=== PATIENT | female | born 1980 ===

== ENCOUNTER 2016-11-14 23:34 | Emergency (ER) | payer OTHER ==
--- NOTE | 2016-11-15 01:43 | ED CLINICAL REPORT ---
Clinical Report - Physicians/Mid Levels [facility]ly [facility] [address] [place] [place] [address] 11/14/2016 23:33 Patient: RODRIGO GRIFFITHS Time Seen: 23:59. Arrived- By private vehicle. Historian- patient. Note: . HISTORY OF PRESENT ILLNESS The patient has recovered. Chief Complaint: SINGLE SYNCOPAL EPISODE. This occurred today. It was gradual in onset and has been waxing/waning. Event was witnessed. The patient lost consciousness. The patient had preceding symptoms of light-headedness. No preceding symptoms of chest pain or abdominal pain. At time of event, she had just stood up. Had a single episode. The episode was brief and lasted seconds. Location of injuries- head and neck. Currently she feels normal. No weakness currently. No nausea currently. No headache currently. (had the flu one week ago. today pt became dizzy and fainted at work, hitting face on counter. She did not fall to the ground and did not strike her abdomen in any way). Similar symptoms previously: Recent medical care: The patient was seen recently in a clinic. REVIEW OF SYSTEMS Last normal menstrual period- with EDC: January 23, 2017. No headache, weakness, chest pain, palpitations or vomiting. No diarrhea, black stools, numbness, bloody stools or fever. No skin rash or enlarged lymph nodes. The patient has had dizziness. She has had a mild nonproductive cough. No blood tinged sputum or frankly bloody sputum. All systems otherwise negative, except as recorded above. PAST HISTORY ( OB: Dr Giarrd). No history of seizure, stroke or psychiatric problems. Has not had GI bleeding. No history of dysrhythmia. Surgeries: . Medications: Vitamins Oral. Allergies: No Known Drug Allergy. SOCIAL HISTORY Never smoker. No alcohol use or drug use. Is a local resident. ADDITIONAL NOTES The nursing notes have been reviewed. PHYSICAL EXAM Vital Signs: 11/14/2016 23:40 BP: 119/76. HR: 88. RR: 16. O2 saturation: 100%. Temp: 98.3 F. Pain level now: 0/10. Appearance: Alert. No acute distress. Head: Mild tenderness in the left frontal region. No ecchymosis or swelling. Eyes: Pupils equal, round and reactive to light. No nystagmus. Extraocular movements normal. ENT: Normal ENT inspection. TM's normal. Pharynx normal. No depression of the gag reflex. No trouble handling secretions, injury to the tongue or pharyngeal erythema. The mucous membranes are not dry. Neck: Normal inspection. Neck supple. Soft tissue tenderness. Vertebral tenderness. There is general posterior midline<lateral tenderness; no step off; no crepitance; no ecchymosis. CVS: Normal heart rate and rhythm. Heart sounds normal. Pulses normal. Respiratory: No respiratory distress. Breath sounds normal. No rales, wheezes or rhonchi. Abdomen: Soft and nontender. Gravid uterus. Size consistent with dates. Back: Normal inspection. No CVA tenderness. Skin: Skin warm and dry. Normal skin color. No rash. Normal skin turgor. Extremities: Extremities exhibit normal ROM. No lower extremity edema. Neuro: Alert. Oriented X 3. Mood/affect normal. Speech normal. Cranial nerves normal (as tested). No cerebellar findings. No motor deficit. No sensory deficit. Reflexes normal. Reflex exam: right patellar 2+, left patellar 2+, right Achilles 2+ and left Achilles 2+. LABS, X-RAYS, AND EKG EKG: EKG time: (00:23). Normal sinus rhythm. Rate: 80. Normal P waves. Normal JUAN. Normal QRS complex. Normal axis. Normal ST and T waves. The study has been interpreted contemporaneously by me. The EKG appears to be a good tracing. Rhythm Strip #1: Normal sinus rhythm. Regular rhythm. Narrow QRS complexes. No ectopy. Laboratory Tests: UA-Culture if indicated: (ABELARDO: 11/15/2016 00:23) ( MsgRcvd 11/15/2016 00:40) Final results Test Result Flag Units (Reference) URINE COLOR YELLOW URINE APPEARANCE CLEAR URINE GLUCOSE NEGATIVE (NEGATIVE) URINE BILIRUBIN NEGATIVE (NEGATIVE) URINE KETONE NEGATIVE (NEGATIVE) URINE SPECIFIC GRAVITY <= 1.005 L (1.010-1.030) URINE PH 6.0 (5.0-8.0) URINE PROTEIN NEGATIVE (NEGATIVE) URINE UROBILINOGEN 0.2 EU/dL (0.2-1.0) URINE NITRITE NEGATIVE (NEGATIVE) URINE BLOOD NEGATIVE (NEGATIVE) URINE LEUK ESTERASE POSITIVE (NEGATIVE) URINE RBC 0-1 rbc/hpf (0-1) URINE WBC 3-5 wbc/hpf (0-1) URINE EPITHELIAL CELLS 1-3 EPI/hpf (0-5) URINE BACTERIA FEW (1+) (NONE SEEN) 1+ (FEW) YEAST ALSO SEEN ON MICROSCOPIC EXAMINATION URINE COMMENT CULTURE INDICATED URINE CULTURES ARE SET-UP BASED ON THE FOLLOWING CRITERIA:POSITIVE NITRITEPOSITIVE LEUKOCYTE ESTERASEGREATER THAN 10 WHITE BLOOD CELLSMODERATE (2+) OR GREATER BACTERIA CBC w Diff: (ABELARDO: 11/15/2016 00:23) ( [facility] 11/15/2016 00:32) Final results Test Result Flag Units (Reference) WHITE BLOOD COUNT 15.4 H K/uL (4.5-11.5) RED BLOOD COUNT 4.24 M/uL (4.00-5.20) HEMOGLOBIN 11.8 L gm/dL (12.0-16.0) HEMATOCRIT 36.0 % (36.0-46.0) MEAN CELL VOLUME 85 fL (80-100) MEAN CORPUSCULAR HGB 28 pg (26-34) MEAN CORPUSCULAR HGB CONC 33 g/dL (31-37) RED CELL DISTRIBUTION WIDTH 14.0 % (11.6-14.8) PLATELET COUNT 264 K/uL (150-400) NEUTROPHIL % 83.2 H % (50-75) LYMPH % 11.1 L % (25-40) MONO % 4.5 % (3-14) EOSINOPHIL % 0.8 % (0-4) BASOPHIL % 0.4 % (0-2) BNP: (ABELARDO: 11/15/2016 00:23) ( MsgRcvd 11/15/2016 00:53) Final results Test Result Flag Units (Reference) B-TYPE NATRIURETIC PEPTIDE < 5.0 L pg/ml (5-100) Amylase: (ABELARDO: 11/15/2016 00:23) ( MsgRcvd 11/15/2016 00:58) Final results Test Result Flag Units (Reference) AMYLASE 91 U/L (25-115) THYROID STIMULATING HORMONE 2.991 uIU/mL (0.34-3.74) CHEM 13 PANEL: (ABELARDO: 11/15/2016 00:23) ( MsgRcvd 11/15/2016 00:51) Final results Test Result Flag Units (Reference) GLUCOSE 90 mg/dL (70-110) BUN 8 mg/dL (7-18) CREATININE 0.5 L mg/dL (0.6-1.3) Estimated GFR >60 mL/min Estimated GFR- >60 mL/min Note: Persistent reduction over 3 months in eGFR<60 mL/min/1.73 m2 defines CKD. Patients with eGFR values>=60 mL/min/1.73 m2 may also have CKD if evidence ofpersistent proteinuria. Additional information may be foundat www.kidney.org. SODIUM 136 mmol/L (136-145) POTASSIUM 3.5 mmol/L (3.5-5.1) CHLORIDE 102 mmol/L (98-107) CARBON DIOXIDE 27 mmol/L (21-32) CALCIUM 8.2 L mg/dL (8.5-10.1) TOTAL PROTEIN 7.1 g/dL (6.4-8.2) ALBUMIN 2.7 L g/dL (3.3-5.0) BILIRUBIN, TOTAL 0.2 mg/dL (0.0-1.0) ALKALINE PHOSPHATASE 107 U/L (46-116) AST (SGOT) 15 U/L (15-37) ALT (SGPT) 18 U/L (12-78) MAGNESIUM 1.9 mg/dL (1.8-2.4) CPK 49 U/L (24-260) TROPONIN I <0.05 L ng/mL (0.00-1.5) TROPONIN REFERENCE RANGE:<0.1 NEGATIVE0.1-1.5 INDETERMINANT>1.5 POSITIVE . Microbiology: Urine culture ordered. Pulse Oximetry: 11/14/2016 23:40 O2 saturation: 100%. (FIO2 - room air). Interpretation: normal. 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 Mild UTI. She reports not drinking much fluids. No sign of serious cardiopulmonary disease now. I have offered further observation and monitoring in house, but she declines this She also declined recommended x-rays - she is aware that I cannot rule out cervical spine injury without films and accepts this (small) risk. Patient/family counseled. Disposition: Discharged. Condition: stable and improved. CLINICAL IMPRESSION Common syncope .12 lead EKG performed. Third trimester . Ultrasound was not performed to determine location because the patient had a previously documented intrauterine . Moderate leukocytosis. No lymphocytosis. Acute urinary tract infection with cystitis. Acute cervical strain. Single contusion to the forehead.No hematoma or skin abrasion. INSTRUCTIONS Do not work for seven days. Drink plenty of fluids. Warnings: Further evaluation is necessary in order to recheck abnormal lab, obtain test results, conduct further tests and assess the possibility of serious illness. It is very important to follow up with a physician. GENERAL WARNINGS: Return or contact your physician immediately if your condition worsens or changes unexpectedly, if not improving as expected, or if other problems arise. Prescription Medications: Macrobid 100 mg: Take 1 capsule orally every 12 hours for 7 days. No refills. Substitution is permissible. Follow-up with: Kadeem Girard MD, Obstetrics/Gynecology, , [facility], [address] [place] [address], [facility] Follow up tomorrow. (Electronically signed by Oscar Nesbitt DO 11/15/2016 5:22)
--- NOTE | 2016-11-15 01:43 | ED NURSING NOTES ---
Clinical Report - Nurses Located Within [facility] [address] [place] [address] 11/14/2016 23:33 Patient: RODRIGO GRIFFITHS TRIAGE Triage time 23:40. Acuity: LEVEL 3. Chief Complaint: DIZZINESS and FAINTING. Alert. No acute distress. --23:48 Chandni Delacruz R.N. 23:40 11/14/16. BP: 119/76. HR: 88. RR: 16. O2 saturation: 100%. Temp: 98.3 F (oral). Pain level now: 0/10. --23:48 Chandni Delacruz R.N. Weight: 70.7 kg stated. Height/Length: 57 inches Per Patient. BMI: 33.8. --23:42 Chandni Delacruz R.N. Medications Vitamins Oral. --23:41 Chandni Delacruz R.N. Allergies No Known Drug Allergy. --23:41 Chandni Delacruz R.N. History Arrived by private vehicle. Historian: patient. Accompanied by family. Primary physician (Era). ( had the flu one week ago. today pt became dizzy and fainted at work, hitting face on counter.). This started today. Treatment RETORT ENGINEER: None. PAST MEDICAL HX: Immunizations: up-to-date. Currently : EDC: January 23, 2017. SOCIAL HX: Never smoker. No alcohol use or drug use. NUTRITIONAL RISK ASSESSMENT: The nutritional risk assessment revealed no deficiencies. FUNCTIONAL ASSESSMENT: Functional assessment: no impairments noted. --23:48 Chandni Delacruz R.N. PROBLEMS: no known problems. ADDITIONAL SURGERIES: . --23:41 Chandni Delacruz R.N. Interventions ID band on patient. To treatment room. --23:48 Chandni Delacruz R.N. PHYSICAL ASSESSMENT To room via wheelchair. Patient gowned. GENERAL / NEURO / PSYCH: Alert. Oriented X 4. Appears in no acute distress. RESPIRATORY: Respirations not labored. CVS: Capillary refill less than 2 seconds. SKIN: Skin is warm and dry. --23:48 Chandni Delacruz R.N. NURSING PROGRESS NOTES Head of bed elevated. Two patient identifiers checked. Call light placed in reach. Side rails up x 1. Bed placed in lowest position. Brakes of bed on. --23:48 Chandni Delacruz R.N. Patient ready for evaluation- chart flagged. --23:48 Chandni Delacruz R.N. ( FHT- 155). --23:53 Chandni Delacruz R.N. EKG time: (0023 AM). EKG was performed by a tech and shown to the ED physician. --00:24 Rajesh Justin <<STRICKEN ENTRY-- 00:11/15/2016 Site #1 started via IV antecubital space with an 20g angiocath, with aseptic technique and good blood return; one attempt. Blood drawn: rainbow set. Labeled in the presence of the patient and sent to the lab. --00:26 Chandni Delacruz R.N. --END STRIKE>> Correction. --00:27 Chandni Delacruz R.N. 00:11/15/2016 Started bag #1 1000 mL IV Fluids IV NS (Saline); at 1000 mL/hr via site #1 via IV pump. Allergies verified and confirmed 5 rights. IV patency established. IV site checked: no pain, redness, or swelling. IV flushed thoroughly pre- and post-medication administration. --00:27 Chandni Delacruz R.N. Patient ID band checked for patient name and birthdate: patient confirmed. Instructions provided to collect clean catch urine and patient verbalized understanding. Clean catch urine collected with return of yellow-colored clear urine; sample sent to lab. Specimen labeled in the presence of the patient. --00:27 Chandni Delacruz R.N. 00:11/15/2016 Site #1 started via IV in the right antecubital space with an 20g angiocath, with aseptic technique and good blood return; one attempt. Blood drawn: rainbow set. Labeled in the presence of the patient and sent to the lab. --00:27 Chandni Delacruz R.N. 23:50 late entry -. raised printer, pulse oximeter and NIBP monitor placed on patient; monitor alarms on. --00:28 Chandni Delacruz R.N. 01:06 11/15/2016 Nitrofurantoin PO Capsules 100 mg given. Allergies verified and confirmed 5 rights. --01:06 Chandni Delacruz R.N. 01:23 11/15/16. BP: 106/65. HR: 84. RR: 15. O2 saturation: 100% on room air. Pain level now: 0/10. --01:25 Chandni Delacruz R.N. DISPOSITION / DISCHARGE 01:44 11/15/16. BP: 103/67. HR: 68. RR: 15. O2 saturation: 100%. Temp: deferred. Pain level now: 0/10. --01:44 Chandni Delacruz R.N. 01:25 11/15/2016 IV Fluids IV NS Discontinued: bag #1 completed. Total amount infused: 1000 mL. IV patency established. IV site checked: no pain, redness, or swelling. IV flushed thoroughly. --01:45 Chandni Delacruz R.N. Condition at departure: improved and stable. No learning barriers present. Discharge instructions provided and reviewed with the patient. Reviewed medication(s) side effects, precautions, dosing and course information. Prescription(s) given to the patient. Patient verbalized understanding. Written instructions provided in Dutch. The patient was discharged home and accompanied by spouse and family. She left the Emergency Department ambulatory and via private vehicle. Spouse driving. --02:00 Chandni Delacruz R.N. 02:01 11/15/2016 Site #1 removed upon discharge. Catheter intact. Manual pressure and bandage applied. --02:01 Chandni Delacruz R.N. Locked/Released at 11/15/2016 2:01 by Chandni Delacruz R.N.
--- NOTE | 2016-11-15 01:43 | ED ORDER SUMMARY ---
..... Patient: RODRIGO GRIFFITHS OrderSheet [facility] VisitID: [id number] [place] [address] 36y, F Registration Date/Time: 11/14/2016 ORDER SHEET Weight: 70.7 kg (stated) Allergies: No Known Drug Allergy GENERAL ORDERS: Continuous Mining Operator (Continuous) (23:11/14/2016 PHutchinson DO) (0:28 RCollier R.N.) UA-Culture if indicated Urgent (:11/14/2016 PHutchinson DO) (Ack 0:03 CHagerty ER Digital Proofing And Platemaker) (0:28 RCollier R.N.) Cardiac Panel Stat (:11/14/2016 PHutchinson DO) (Ack 0:03 CHagerty ER Digital Proofing And Platemaker) (0:28 RCollier R.N.) BNP Urgent (:11/14/2016 PHutchinson DO) (Ack 0:03 CHagerty ER Digital Proofing And Platemaker) (0:28 RCollier R.N.) Amylase Urgent (23:59 11/14/2016 PHutchinson DO) (Ack 0:03 CHagerty ER Digital Proofing And Platemaker) (0:28 RCollier R.N.) TSH Urgent (:11/14/2016 PHutchinson DO) (Ack 0:03 CHagerty ER Digital Proofing And Platemaker) (0:28 RCollier R.N.) Pulse oximeter (:11/14/2016 PHutchinson DO) (0:28 RCollier R.N.) EKG - ER Stat (:11/14/2016 PHutchinson DO) (0:16 CHagerty ER Digital Proofing And Platemaker) Vitals (23:59 11/14/2016 PHutchinson DO) (0:28 RCollier R.N.) Cervical Spine 2 or 3V Urgent (00:46 11/15/2016 PHutchinson DO) (Ack 1:02 CHagerty ER Digital Proofing And Platemaker) MEDICATION ORDERS: Nitrofurantoin PO 100 mg (NOW) (00:47 11/15/2016 PHutchinson DO) (Ack 0:58 RCollier R.N.) (1:06 RCollier R.N.) IV FLUIDS: IV NS : initial bolus 1000 mL (1000 mL/hr), then 250 mL/hr for X4 (NOW) (23:59 11/14/2016 Noelle HOLMAN) (Ack 0:09 RCollier R.N.) (0:27 RCollier R.N.) ORDER SHEET NOTES: [Electronically signed by Chandni Delacruz R.N. (02:01 11/15/2016)] [Electronically signed by Oscar Nesbitt DO (05:22 11/15/2016)] [Electronically locked/signed by Chandni Delacruz R.N. (02:01 11/15/2016)]
--- NOTE | 2016-11-15 01:43 | ED ORDER SUMMARY ---
..... Patient: RODRIGO GRIFFITHS OrderSheet [facility] VisitID: [id number] [place] [address] 36y, F Registration Date/Time: 11/14/2016 ORDER SHEET Weight: 70.7 kg (stated) Allergies: No Known Drug Allergy GENERAL ORDERS: Tool Planer Set Up Operator (Continuous) (23:11/14/2016 PHutchinson DO) (0:28 RCollier R.N.) UA-Culture if indicated Urgent (:11/14/2016 PHutchinson DO) (Ack 0:03 CHagerty ER Production Technologist) (0:28 RCollier R.N.) Cardiac Panel Stat (:11/14/2016 PHutchinson DO) (Ack 0:03 CHagerty ER Production Technologist) (0:28 RCollier R.N.) BNP Urgent (:11/14/2016 PHutchinson DO) (Ack 0:03 CHagerty ER Production Technologist) (0:28 RCollier R.N.) Amylase Urgent (23:59 11/14/2016 PHutchinson DO) (Ack 0:03 CHagerty ER Production Technologist) (0:28 RCollier R.N.) TSH Urgent (:11/14/2016 PHutchinson DO) (Ack 0:03 CHagerty ER Production Technologist) (0:28 RCollier R.N.) Pulse oximeter (:11/14/2016 PHutchinson DO) (0:28 RCollier R.N.) EKG - ER Stat (:11/14/2016 PHutchinson DO) (0:16 CHagerty ER Production Technologist) Vitals (23:59 11/14/2016 PHutchinson DO) (0:28 RCollier R.N.) Cervical Spine 2 or 3V Urgent (00:46 11/15/2016 PHutchinson DO) (Ack 1:02 CHagerty ER Production Technologist) MEDICATION ORDERS: Nitrofurantoin PO 100 mg (NOW) (00:47 11/15/2016 PHutchinson DO) (Ack 0:58 RCollier R.N.) (1:06 RCollier R.N.) IV FLUIDS: IV NS : initial bolus 1000 mL (1000 mL/hr), then 250 mL/hr for X4 (NOW) (23:59 11/14/2016 Noelle HOLMAN) (Ack 0:09 RCollier R.N.) (0:27 RCollier R.N.) ORDER SHEET NOTES: [Electronically signed by Chandni Delacruz R.N. (02:01 11/15/2016)] [Electronically signed by Oscar Nesbitt DO (05:22 11/15/2016)] [Electronically locked/signed by Chandni Delacruz R.N. (02:01 11/15/2016)]
--- NOTE | 2016-11-15 01:43 | ED NURSING NOTES ---
Clinical Report - Nurses [facility] [address] [place] [address] 11/14/2016 23:33 Patient: RODRIGO GRIFFITHS TRIAGE Triage time 23:40. Acuity: LEVEL 3. Chief Complaint: DIZZINESS and FAINTING. Alert. No acute distress. --23:48 Chandni Delacruz R.N. 23:40 11/14/16. BP: 119/76. HR: 88. RR: 16. O2 saturation: 100%. Temp: 98.3 F (oral). Pain level now: 0/10. --23:48 Chandni Delacruz R.N. Weight: 70.7 kg stated. Height/Length: 57 inches Per Patient. BMI: 33.8. --23:42 Chandni Delacruz R.N. Medications Vitamins Oral. --23:41 Chandni Delacruz R.N. Allergies No Known Drug Allergy. --23:41 Chandni Delacruz R.N. History Arrived by private vehicle. Historian: patient. Accompanied by family. Primary physician (Era). ( had the flu one week ago. today pt became dizzy and fainted at work, hitting face on counter.). This started today. Treatment CLINICAL PROFESSOR: None. PAST MEDICAL HX: Immunizations: up-to-date. Currently : EDC: January 23, 2017. SOCIAL HX: Never smoker. No alcohol use or drug use. NUTRITIONAL RISK ASSESSMENT: The nutritional risk assessment revealed no deficiencies. FUNCTIONAL ASSESSMENT: Functional assessment: no impairments noted. --23:48 Chandni Delacruz R.N. PROBLEMS: no known problems. ADDITIONAL SURGERIES: . --23:41 Chandni Delacruz R.N. Interventions ID band on patient. To treatment room. --23:48 Chandni Delacruz R.N. PHYSICAL ASSESSMENT To room via wheelchair. Patient gowned. GENERAL / NEURO / PSYCH: Alert. Oriented X 4. Appears in no acute distress. RESPIRATORY: Respirations not labored. CVS: Capillary refill less than 2 seconds. SKIN: Skin is warm and dry. --23:48 Chandni Delacruz R.N. NURSING PROGRESS NOTES Head of bed elevated. Two patient identifiers checked. Call light placed in reach. Side rails up x 1. Bed placed in lowest position. Brakes of bed on. --23:48 Chandni Delacruz R.N. Patient ready for evaluation- chart flagged. --23:48 Chandni Delacruz R.N. ( FHT- 155). --23:53 Chandni Delacruz R.N. EKG time: (0023 AM). EKG was performed by a tech and shown to the ED physician. --00:24 Rajesh Justin <<STRICKEN ENTRY-- 00:11/15/2016 Site #1 started via IV antecubital space with an 20g angiocath, with aseptic technique and good blood return; one attempt. Blood drawn: rainbow set. Labeled in the presence of the patient and sent to the lab. --00:26 Chandni Delacruz R.N. --END STRIKE>> Correction. --00:27 Chandni Delacruz R.N. 00:11/15/2016 Started bag #1 1000 mL IV Fluids IV NS (Saline); at 1000 mL/hr via site #1 via IV pump. Allergies verified and confirmed 5 rights. IV patency established. IV site checked: no pain, redness, or swelling. IV flushed thoroughly pre- and post-medication administration. --00:27 Chandni Delacruz R.N. Patient ID band checked for patient name and birthdate: patient confirmed. Instructions provided to collect clean catch urine and patient verbalized understanding. Clean catch urine collected with return of yellow-colored clear urine; sample sent to lab. Specimen labeled in the presence of the patient. --00:27 Chandni Delacruz R.N. 00:11/15/2016 Site #1 started via IV in the right antecubital space with an 20g angiocath, with aseptic technique and good blood return; one attempt. Blood drawn: rainbow set. Labeled in the presence of the patient and sent to the lab. --00:27 Chandni Delacruz R.N. 23:50 late entry -. secured entrance monitor, pulse oximeter and NIBP monitor placed on patient; monitor alarms on. --00:28 Chandni Delacruz R.N. 01:06 11/15/2016 Nitrofurantoin PO Capsules 100 mg given. Allergies verified and confirmed 5 rights. --01:06 Chandni Delacruz R.N. 01:23 11/15/16. BP: 106/65. HR: 84. RR: 15. O2 saturation: 100% on room air. Pain level now: 0/10. --01:25 Chandni Delacruz R.N. DISPOSITION / DISCHARGE 01:44 11/15/16. BP: 103/67. HR: 68. RR: 15. O2 saturation: 100%. Temp: deferred. Pain level now: 0/10. --01:44 Chandni Delacruz R.N. 01:25 11/15/2016 IV Fluids IV NS Discontinued: bag #1 completed. Total amount infused: 1000 mL. IV patency established. IV site checked: no pain, redness, or swelling. IV flushed thoroughly. --01:45 Chandni Delacruz R.N. Condition at departure: improved and stable. No learning barriers present. Discharge instructions provided and reviewed with the patient. Reviewed medication(s) side effects, precautions, dosing and course information. Prescription(s) given to the patient. Patient verbalized understanding. Written instructions provided in Tunisian. The patient was discharged home and accompanied by spouse and family. She left the Emergency Department ambulatory and via private vehicle. Spouse driving. --02:00 Chandni Delacruz R.N. 02:01 11/15/2016 Site #1 removed upon discharge. Catheter intact. Manual pressure and bandage applied. --02:01 Chandni Delacruz R.N. Locked/Released at 11/15/2016 2:01 by Chandni Delacruz R.N.
--- NOTE | 2016-11-15 05:22 | ED DISCHARGE INSTRUCTIONS ---
Patient: RODRIGO GRIFFITHS General Instructions [facility] VisitID: [id number] [place] [id number] 36y, F Registration Date/Time: 11/14/2016 Common syncope .12 lead EKG performed. Third trimester . Ultrasound was not performed to determine location because the patient had a previously documented intrauterine . Moderate leukocytosis. No lymphocytosis. Acute urinary tract infection with cystitis. Acute cervical strain. Single contusion to the forehead.No hematoma or skin abrasion. INSTRUCTIONS Do not work for seven days. Drink plenty of fluids. Warnings: Further evaluation is necessary in order to recheck abnormal lab, obtain test results, conduct further tests and assess the possibility of serious illness. It is very important to follow up with a physician. GENERAL WARNINGS: Return or contact your physician immediately if your condition worsens or changes unexpectedly, if not improving as expected, or if other problems arise. Prescription Medications: Macrobid 100 mg: Take 1 capsule orally every 12 hours for 7 days. No refills. Substitution is permissible. Follow-up with: Kadeem Girard MD, Obstetrics/Gynecology, , [facility], [address] [place] [address] Follow up tomorrow. ADDITIONAL INFORMATION Fainting:Uncertain Cause Fainting (syncope) is a temporary loss of consciousness ("passing out"). It occurs when blood flow to the brain is reduced. Near-fainting ("near-syncope") is very similar to fainting, but you do not fully "pass out". The common minor causes of fainting include: sudden fear, pain, nausea, emotional stress and overexertion. Suddenly standing up after sitting or lying for a long time can also cause fainting. The more serious causes for fainting are due to either a very slow or very fast or very slow heart beat ("arrhythmia"), other types of heart disease, dehydration, blood loss, seizure, stroke or ruptured blood vessel in the brain. Taking too much high blood pressure medicine can also cause low blood pressure and fainting. The exact cause of your episode is not certain. However, the tests today did not show any of the serious causes of fainting. Sometimes further testing is needed to find out if a serious problem exists. Therefore, it is important that you follow-up with your doctor as advised. Home Care: 1) Rest today. You may resume your normal activities when you are feeling back to normal. It is best to remain with someone who can check on you for the next 24 hours to watch for another episode of fainting. 2) If you become light-headed or dizzy, lie down immediately or sit with your head between your knees. 3) Because we do not know the exact cause of your near fainting spell, it is possible for another spell to occur without warning. Therefore, do not drive a car or operate dangerous equipment, do not take a bath alone (use a shower instead) and do not swim alone until your doctor says that you are no longer in danger of having another fainting spell. Follow Up with your doctor as advised. Get Prompt Medical Attention if any of the following occur: -- Another fainting spell occurs, which is not explained by the common causes listed above -- Chest, arm, neck, jaw, back or abdominal pain -- Shortness of breath -- Severe headache or seizure -- Blood in vomit, stools (black or red color) -- Unexpected vaginal bleeding -- Palpitations (very rapid or very slow or irregular heart beat) -- Signs of stroke: Weakness of an arm or leg or one side of the face Difficulty with speech or vision Extreme drowsiness, confusion, dizziness or fainting Bladder Infection,Female (Adult) A bladder infection ("cystitis" or "UTI") usually causes a constant urge to urinate and a burning when passing urine. Urine may be cloudy, smelly or dark. There may be pain in the lower abdomen. A bladder infection occurs when bacteria from the vaginal area enter the bladder opening (urethra). This can occur from sexual intercourse, wearing tight clothing, dehydration and other factors. Home Care: Drink lots of fluids (at least 6-8 glasses a day, unless you must restrict fluids for other medical reasons). This will force the medicine into your urinary system and flush the bacteria out of your body. Avoid sexual intercourse until your symptoms are gone. Avoid caffeine, alcohol and spicy foods. These can irritate the bladder. A bladder infection is treated with antibiotics. You may also be given Pyridium (generic = phenazopyridine) to reduce the burning sensation. This medicine will cause your urine to become a bright orange color. The orange urine may stain clothing. You may wear a pad or panty-liner to protect clothing. Preventing Future Infections: Always wipe from front to back after a bowel movement. Keep the genital area clean and dry. Drink plenty of fluids each day to avoid dehydration. Both sexual partners should wash before intercourse. Urinate right after intercourse to flush out the bladder. Wear cotton underwear and cotton-lined panty hose; avoid tight-fitting pants. If you are on control pills and are having frequent bladder infections, discuss with your doctor. Follow Up: Return to this facility or see your doctor if ALL symptoms are not gone after three days of treatment. Get Prompt Medical Attention if any of the following occur: Fever of 100.4F (38C) or higher, or as directed by your healthcare provider No improvement by the third day of treatment Increasing back or abdominal pain Repeated vomiting; unable to keep medicine down Weakness, dizziness or fainting Vaginal discharge Pain, redness or swelling in the labia (outer vaginal area) Nitrofurantoin, Nitrofurantoin, Macrocrystalline Oral capsule What is this medicine? NITROFURANTOIN (tana ruby marcum AN toyn) is an antibiotic. It is used to treat urinary tract infections. How should I use this medicine? Take this medicine by mouth with a glass of water. Follow the directions on the prescription label. Take this medicine with food or milk. Take your doses at regular intervals. Do not take your medicine more often than directed. Do not stop taking except on your doctor's advice. Talk to your straw hat presser regarding the use of this medicine in children. While this drug may be prescribed for selected conditions, precautions do apply. What side effects may I notice from receiving this medicine? Side effects that you should report to your doctor or health in home caregiver as soon as possible: allergic reactions like skin rash or hives, swelling of the face, lips, or tongue chest pain cough difficulty breathing dizziness, drowsiness fever or infection joint aches or pains pale or blue-tinted skin redness, blistering, peeling or loosening of the skin, including inside the mouth tingling, burning, pain, or numbness in hands or feet unusual bleeding or bruising unusually weak or tired yellowing of eyes or skin Side effects that usually do not require medical attention (report to your doctor or health in home caregiver if they continue or are bothersome): dark urine diarrhea headache loss of appetite nausea or vomiting temporary hair loss What may interact with this medicine? antacids containing magnesium trisilicate probenecid quinolone antibiotics like ciprofloxacin, lomefloxacin, norfloxacin and ofloxacin sulfinpyrazone What if I miss a dose? If you miss a dose, take it as soon as you can. If it is almost time for your next dose, take only that dose. Do not take double or extra doses. Where should I keep my medicine? Keep out of the reach of children. Store at room temperature between 15 and 30 degrees C (59 and 86 degrees F). Protect from light. Throw away any unused medicine after the expiration date. What should I tell my health care provider before I take this medicine? They need to know if you have any of these conditions: anemia diabetes [id number] dehydrogenase deficiency kidney disease liver disease lung disease other chronic illness an unusual or allergic reaction to nitrofurantoin, other antibiotics, other medicines, foods, dyes or preservatives or trying to get breast-feeding What should I watch for while using this medicine? Tell your doctor or health in home caregiver if your symptoms do not improve or if you get new symptoms. Drink several glasses of water a day. If you are taking this medicine for a long time, visit your doctor for regular checks on your progress. If you are diabetic, you may get a false positive result for sugar in your urine with certain brands of urine tests. Check with your doctor. You have been given the following additional information: Syncope, Unk Cause Bladder Infection, Female (Adult) Nitrofurantoin, Nitrofurantoin, Macrocrystalline Oral capsule Do not work for seven days. (Electronically signed by Oscar Nesbitt DO 11/15/2016 5:22)
--- NOTE | 2016-11-15 05:22 | ED MAR SUMMARY ---
..... Medication Administration Record [facility] [address] [place] [address] Patient: RODRIGO GRIFFITHS Visit ID: [id number] 36y, F Weight: 70.7 kg Height/Length: 57 in BMI: 33.8 ALLERGIES: No Known Drug Allergy Start 00:23 11/15/2016 Chandni Delacruz R.N., Stop 01:25 11/15/2016 Chandni Delacruz R.N. Medication Administered: IV NS (SALINE), Dose: IV Fluids, Rate: 1000 mL/hr, Dispensed: 1000 mL bag, Site: #1 right AC. Medication Ordered: IV NS : initial bolus 1000 mL (1000 mL/hr), then 250 mL/hr for X4 (NOW). Given 01:06 11/15/2016 Chandni Delacruz RAshley Medication Administered: NITROFURANTOIN [PO], Dose: 100 mg Capsules PO. Medication Ordered: Nitrofurantoin PO 100 mg (NOW).
--- NOTE | 2016-11-15 05:22 | ED MED RECONCILIATION SUMMARY ---
Patient: RODRIGO GRIFFITHS Medication Reconciliation Report [facility] VisitID: [id number] [address] [place] [address] 36y, F Registration Date/Time: 11/14/2016 Weight: 70.7 kg Height/Length: 57 in. BMI: 33.8 ALLERGIES: No Known Drug Allergy The patient's Home Medications are listed below: THE FOLLOWING MEDICATIONS NEED TO BE RECONCILED: Vitamins Oral The source(s) of the original Home Medication information: Not obtained. The following Medications were given to the patient in the Emergency Department: IV NS IV Fluids bolus 0, then 1000 mL/hr, administered: 11/15/2016 12:23:00 AM Nitrofurantoin [PO] PO 100 mg, administered: 11/15/2016 1:06:00 AM The following Medications were prescribed to the patient: Macrobid 100 mg: Take 1 capsule orally every 12 hours for 7 days. No refills. Substitution is permissible. -- Oscar Nesbitt DO
--- NOTE | 2016-11-15 05:22 | ED DISCHARGE INSTRUCTIONS ---
Patient: RODRIGO GRIFFITHS General Instructions [facility] VisitID: [id number] [place] [id number] 36y, F Registration Date/Time: 11/14/2016 Common syncope .12 lead EKG performed. Third trimester . Ultrasound was not performed to determine location because the patient had a previously documented intrauterine . Moderate leukocytosis. No lymphocytosis. Acute urinary tract infection with cystitis. Acute cervical strain. Single contusion to the forehead.No hematoma or skin abrasion. INSTRUCTIONS Do not work for seven days. Drink plenty of fluids. Warnings: Further evaluation is necessary in order to recheck abnormal lab, obtain test results, conduct further tests and assess the possibility of serious illness. It is very important to follow up with a physician. GENERAL WARNINGS: Return or contact your physician immediately if your condition worsens or changes unexpectedly, if not improving as expected, or if other problems arise. Prescription Medications: Macrobid 100 mg: Take 1 capsule orally every 12 hours for 7 days. No refills. Substitution is permissible. Follow-up with: Kadeem Girard MD, Obstetrics/Gynecology, , [facility], [address] [place] [address] Follow up tomorrow. ADDITIONAL INFORMATION Fainting:Uncertain Cause Fainting (syncope) is a temporary loss of consciousness ("passing out"). It occurs when blood flow to the brain is reduced. Near-fainting ("near-syncope") is very similar to fainting, but you do not fully "pass out". The common minor causes of fainting include: sudden fear, pain, nausea, emotional stress and overexertion. Suddenly standing up after sitting or lying for a long time can also cause fainting. The more serious causes for fainting are due to either a very slow or very fast or very slow heart beat ("arrhythmia"), other types of heart disease, dehydration, blood loss, seizure, stroke or ruptured blood vessel in the brain. Taking too much high blood pressure medicine can also cause low blood pressure and fainting. The exact cause of your episode is not certain. However, the tests today did not show any of the serious causes of fainting. Sometimes further testing is needed to find out if a serious problem exists. Therefore, it is important that you follow-up with your doctor as advised. Home Care: 1) Rest today. You may resume your normal activities when you are feeling back to normal. It is best to remain with someone who can check on you for the next 24 hours to watch for another episode of fainting. 2) If you become light-headed or dizzy, lie down immediately or sit with your head between your knees. 3) Because we do not know the exact cause of your near fainting spell, it is possible for another spell to occur without warning. Therefore, do not drive a car or operate dangerous equipment, do not take a bath alone (use a shower instead) and do not swim alone until your doctor says that you are no longer in danger of having another fainting spell. Follow Up with your doctor as advised. Get Prompt Medical Attention if any of the following occur: -- Another fainting spell occurs, which is not explained by the common causes listed above -- Chest, arm, neck, jaw, back or abdominal pain -- Shortness of breath -- Severe headache or seizure -- Blood in vomit, stools (black or red color) -- Unexpected vaginal bleeding -- Palpitations (very rapid or very slow or irregular heart beat) -- Signs of stroke: Weakness of an arm or leg or one side of the face Difficulty with speech or vision Extreme drowsiness, confusion, dizziness or fainting Bladder Infection,Female (Adult) A bladder infection ("cystitis" or "UTI") usually causes a constant urge to urinate and a burning when passing urine. Urine may be cloudy, smelly or dark. There may be pain in the lower abdomen. A bladder infection occurs when bacteria from the vaginal area enter the bladder opening (urethra). This can occur from sexual intercourse, wearing tight clothing, dehydration and other factors. Home Care: Drink lots of fluids (at least 6-8 glasses a day, unless you must restrict fluids for other medical reasons). This will force the medicine into your urinary system and flush the bacteria out of your body. Avoid sexual intercourse until your symptoms are gone. Avoid caffeine, alcohol and spicy foods. These can irritate the bladder. A bladder infection is treated with antibiotics. You may also be given Pyridium (generic = phenazopyridine) to reduce the burning sensation. This medicine will cause your urine to become a bright orange color. The orange urine may stain clothing. You may wear a pad or panty-liner to protect clothing. Preventing Future Infections: Always wipe from front to back after a bowel movement. Keep the genital area clean and dry. Drink plenty of fluids each day to avoid dehydration. Both sexual partners should wash before intercourse. Urinate right after intercourse to flush out the bladder. Wear cotton underwear and cotton-lined panty hose; avoid tight-fitting pants. If you are on control pills and are having frequent bladder infections, discuss with your doctor. Follow Up: Return to this facility or see your doctor if ALL symptoms are not gone after three days of treatment. Get Prompt Medical Attention if any of the following occur: Fever of 100.4F (38C) or higher, or as directed by your healthcare provider No improvement by the third day of treatment Increasing back or abdominal pain Repeated vomiting; unable to keep medicine down Weakness, dizziness or fainting Vaginal discharge Pain, redness or swelling in the labia (outer vaginal area) Nitrofurantoin, Nitrofurantoin, Macrocrystalline Oral capsule What is this medicine? NITROFURANTOIN (tana ruby marcum AN toyn) is an antibiotic. It is used to treat urinary tract infections. How should I use this medicine? Take this medicine by mouth with a glass of water. Follow the directions on the prescription label. Take this medicine with food or milk. Take your doses at regular intervals. Do not take your medicine more often than directed. Do not stop taking except on your doctor's advice. Talk to your critical care transport nurse regarding the use of this medicine in children. While this drug may be prescribed for selected conditions, precautions do apply. What side effects may I notice from receiving this medicine? Side effects that you should report to your doctor or health acute care nursing assistant as soon as possible: allergic reactions like skin rash or hives, swelling of the face, lips, or tongue chest pain cough difficulty breathing dizziness, drowsiness fever or infection joint aches or pains pale or blue-tinted skin redness, blistering, peeling or loosening of the skin, including inside the mouth tingling, burning, pain, or numbness in hands or feet unusual bleeding or bruising unusually weak or tired yellowing of eyes or skin Side effects that usually do not require medical attention (report to your doctor or health acute care nursing assistant if they continue or are bothersome): dark urine diarrhea headache loss of appetite nausea or vomiting temporary hair loss What may interact with this medicine? antacids containing magnesium trisilicate probenecid quinolone antibiotics like ciprofloxacin, lomefloxacin, norfloxacin and ofloxacin sulfinpyrazone What if I miss a dose? If you miss a dose, take it as soon as you can. If it is almost time for your next dose, take only that dose. Do not take double or extra doses. Where should I keep my medicine? Keep out of the reach of children. Store at room temperature between 15 and 30 degrees C (59 and 86 degrees F). Protect from light. Throw away any unused medicine after the expiration date. What should I tell my health care provider before I take this medicine? They need to know if you have any of these conditions: anemia diabetes vxwrohp-[id number] dehydrogenase deficiency kidney disease liver disease lung disease other chronic illness an unusual or allergic reaction to nitrofurantoin, other antibiotics, other medicines, foods, dyes or preservatives or trying to get breast-feeding What should I watch for while using this medicine? Tell your doctor or health acute care nursing assistant if your symptoms do not improve or if you get new symptoms. Drink several glasses of water a day. If you are taking this medicine for a long time, visit your doctor for regular checks on your progress. If you are diabetic, you may get a false positive result for sugar in your urine with certain brands of urine tests. Check with your doctor. You have been given the following additional information: Syncope, Unk Cause Bladder Infection, Female (Adult) Nitrofurantoin, Nitrofurantoin, Macrocrystalline Oral capsule Do not work for seven days. (Electronically signed by Oscar Nesbitt DO 11/15/2016 5:22)
--- NOTE | 2016-11-15 05:22 | ED MED RECONCILIATION SUMMARY ---
Patient: RODRIGO GRIFFITHS Medication Reconciliation Report [facility] VisitID: [id number] [address] [address] 36y, F Registration Date/Time: 11/14/2016 Weight: 70.7 kg Height/Length: 57 in. BMI: 33.8 ALLERGIES: No Known Drug Allergy The patient's Home Medications are listed below: THE FOLLOWING MEDICATIONS NEED TO BE RECONCILED: Vitamins Oral The source(s) of the original Home Medication information: Not obtained. The following Medications were given to the patient in the Emergency Department: IV NS IV Fluids bolus 0, then 1000 mL/hr, administered: 11/15/2016 12:23:00 AM Nitrofurantoin [PO] PO 100 mg, administered: 11/15/2016 1:06:00 AM The following Medications were prescribed to the patient: Macrobid 100 mg: Take 1 capsule orally every 12 hours for 7 days. No refills. Substitution is permissible. -- Oscar Nesbitt DO
--- NOTE | 2016-11-15 05:22 | ED MAR SUMMARY ---
..... Medication Administration Record [facility] [address] [place] [address] Patient: RODRIGO GRIFFITHS Visit ID: [id number] 36y, F Weight: 70.7 kg Height/Length: 57 in BMI: 33.8 ALLERGIES: No Known Drug Allergy Start 00:23 11/15/2016 Chandni Delacruz R.N., Stop 01:25 11/15/2016 Chandni Delacruz R.N. Medication Administered: IV NS (SALINE), Dose: IV Fluids, Rate: 1000 mL/hr, Dispensed: 1000 mL bag, Site: #1 right AC. Medication Ordered: IV NS : initial bolus 1000 mL (1000 mL/hr), then 250 mL/hr for X4 (NOW). Given 01:06 11/15/2016 Chandni Delacruz RAshley Medication Administered: NITROFURANTOIN [PO], Dose: 100 mg Capsules PO. Medication Ordered: Nitrofurantoin PO 100 mg (NOW).
[2017-01-18] MEDS ORDERED: PRENATAL1 TAB PO (11:32)
== END 2016-11-15 02:00 | disposition home or self-care (01) ==
LOC: ED SRH 23:34 → EDSTATUS 23:34 → ED SRH 11-15 02:00
DX: O26.893 Other specified pregnancy related conditions, third trimester (principal); Z3A.00 Weeks of gestation of pregnancy not specified; R55 Syncope and collapse; O23.13 Infections of bladder in pregnancy, third trimester; O9A.213 Injury, poisoning and certain other consequences of external causes complicating pregnancy, third trimester; S16.1XXA Strain of muscle, fascia and tendon at neck level, initial encounter; S00.83XA Contusion of other part of head, initial encounter; W18.39XA Other fall on same level, initial encounter; Y92.9 Unspecified place or not applicable; Y99.0 Civilian activity done for income or pay
CPT/HCPCS: 90004; 90070; 90100; 90469; 90616; 91320; 91672; 92530; 92610; 92720; 93140; 95059

== ENCOUNTER 2017-01-18 17:22 | Outpatient (CLI) | payer OTHER ==
[~2017-01-18 17:22] MED LIST: PRENATAL1 TAB PO
== END 2017-01-18 23:00 ==
LOC: LAB SRH 17:22
DX: Z01.812 Encounter for preprocedural laboratory examination (principal); Z34.83 Encounter for supervision of other normal pregnancy, third trimester
CPT/HCPCS: 90001; 90004; 90074; 90155; 90469; 95059

== ENCOUNTER 2017-01-20 07:16 | Inpatient (IN) | payer OTHER ==
--- NOTE | 2017-01-13 04:22 | HISTORY AND PHYSICAL ---
ADMITTED: 01/20/2017 CHIEF COMPLAINT: 1. Term . 2. Macrosomia, previous section x2. 3. Multiparity. 4. Voluntary tubal ligation declined repeatedly HISTORY OF PRESENT ILLNESS: The patient has been seen here on multiple visits throughout her . She is scheduled for a repeat section at 39 weeks and 4 days on 01/20/2017. MEDICAL/SURGICAL HISTORY: Menstrual history: Noncontributory. Obstetric history: No contraception or history available. Deliveries in 2011 and 2014, at 40+ weeks, through section and failed with second repeat section. Surgical history: section x2. Medical history: Negative. MEDICATIONS: 1. None. ALLERGIES: 1. NONE. SOCIAL HISTORY: Negative. FAMILY HISTORY: Father, mother and siblings alive and well. No significant medical history. REVIEW OF SYSTEMS: Alert and oriented x3. Genitourinary: Purpose for surgery. Cardiovascular and Gastrointestinal: Essentially normal evaluation. PHYSICAL EXAMINATION: VITAL SIGNS: The patient is 4 feet 9 inches, 169 pounds. Blood pressure 118/68, pulse and temperature normal. SKIN/HAIR/INTEGUMENT: Normal. HEENT: Grossly intact. BREASTS: Exam not done. LUNGS: Grossly normal by visualization. HEART: Grossly normal by visualization. ABDOMEN: Fundal height greater than 40 cm, consistent with state. EXTREMITIES: No significant clubbing, cyanosis, erythema or edema. PELVIC: Exam not done. RECTAL: Exam not done. LAB/IMAGING: Pending. IMPRESSION: 1. 39+ week gestation, multiparous patient for repeat section and tubal ligation declined. PLAN: Repeat section. Informed consent given to the patient. Risks, benefits, complications, and alternatives discussed today and previous. The patient understands and accepts. The possibility for blood loss, need for transfusion, infection less likely.
[~2017-01-20] VITALS: Ht 144.8 cm; Wt 76.2 kg
[2017-01-20] VITALS (9 sets, daily range): BP systolic 94–141; BP diastolic 51–89
--- NOTE | 2017-01-20 11:26 | OPERATIVE REPORT ---
DATE OF SURGERY: 01/20/2017 SURGEON: Kadeem Girard MD [employer] AGENT: July Padilla MD PREOPERATIVE DIAGNOSIS: 1. Previous section x2 at 39 plus weeks for repeat POSTOPERATIVE DIAGNOSIS: 1. Previous section x2 at 39 plus weeks for repeat, delivered PROCEDURE PERFORMED: 1. Repeat low segment transverse uterine section and scar revision. FINDINGS: Normal. ANESTHESIA: Spinal. Anesthesiologist: Nataliya BOLANOS COMPLICATIONS: None. CONDITION: Good. ESTIMATED BLOOD LOSS: Less than 300 mL FLUIDS: Seen anesthesia. DRAINS: See anesthesia. No blood. IMPLANTS/GRAFTS: None. PATHOLOGY SPECIMEN: Placenta discarded, normal. SURGICAL TECHNIQUE: The patient was prepped and draped in normal fashion, had a normal time-out discussion and received 2 grams of Ancef. After inspection, she had adequate anesthesia. The scalpel was used to go superiorly and inferiorly approximately 3 cm swath, full length down to the fascia for scar revision. The fascia was then dissected laterally, superiorly and then the midline of the rectus was entered. The muscle was stretched in the usual fashion. The circular retractor was placed with good visualization and the bladder flap was dissected with the Bovie. The lower uterine segment was incised and then the clear fluid was reached after 2 mm thick lower segment. The incision was carried laterally and superiorly with the bandage scissors. The infant was then easily delivered from ROT position and the right hand delivered with the head. With a moderate amount of pressure, the baby was delivered easily. Cord was clamped. Cord blood was collected. Peds and then RT and OB nurses were in attendance. Baby did well. Apgars 9 and 10. Cord blood was collected. The placenta was massaged externally and removed. Three rings were placed after tape was used to wipe out the membranes of remaining blood clot. The first suture of 0 poly was used in a running fashion from angle to angle and then returned with the same suture, imbricating. Good hemostasis. The gutters were evaluated and found to be normal. The fascia was then reapproximated 2 cm wide, 2 cm deep, from angle to angle with the second suture of 0 poly. At this point, the subcutaneous was hemostatic and the 2 cm of subcutaneous tissue was reapproximated with the first suture of 3-0 poly, 3 total sutures. The skin was reapproximated with alyssia. Sponge, needle, tape and instrument counts were correct x2. The patient tolerated the procedure well and went to her room in good condition.
[2017-01-21 00:30] VITALS: BP 128/59
[2017-01-21 03:49] VITALS: BP 109/64
[2017-01-21 09:45] VITALS: BP 99/55
[2017-01-21 16:20] VITALS: BP 116/72
--- NOTE | 2017-01-21 19:10 | Provider's Discharge Care Plan ---
Problem, Goal, Plan Problem List 1. Status post repeat low transverse section Goals: Improve disease control Instructions: Follow up as needed
--- NOTE | 2017-01-21 19:10 | Provider's Discharge Care Plan ---
Problem, Goal, Plan Problem List 1. Status post repeat low transverse section Goals: Improve disease control Instructions: Follow up as needed
[2017-01-21] MEDS ORDERED: PERCOCET1 TA1 PO (19:12)
--- NOTE | 2017-01-21 19:37 | DISCHARGE SUMMARY ---
ADMIT DATE: 01/20/2017 DISCHARGE DATE: 01/21/2017 DISCHARGE DIAGNOSES: 1. Same plus delivered ADMITTING DIAGNOSES: 1. Previous section x2 2. At 39+ weeks for elective repeat section PROCEDURE: Low transverse section with scar revision, no complications. HOSPITAL COURSE: The patient was admitted for elective section. This was done without any particular complication. The patient is doing extremely well on postoperative day 1, desiring discharge home. She has had normal resumption of GI and function and is ambulating well. She was discharged home. DISCHARGE INSTRUCTIONS/MEDICATIONS: Percocet 5/325, #20 given; and a baseline of Motrin suggested. Pelican placed for removal 1 week postoperative followup day. Warnings and precautions given to the patient.
== END 2017-01-21 19:50 | disposition home or self-care (01) | DRG 540 ==
LOC: OB SRH 07:16 → U SRH 09:00 → OB SRH 01-21 19:50
PROVIDERS: ADMIT Obstetrics & Gynecology
PROC: 10D00Z1 Extraction of Products of Conception, Low, Open Approach (ICD-10-PCS; principal; 2017-01-20 09:00)
DX: O34.211 Maternal care for low transverse scar from previous cesarean delivery (principal); Z37.0 Single live birth; O36.63X0 Maternal care for excessive fetal growth, third trimester, not applicable or unspecified; Z3A.39 39 weeks gestation of pregnancy
CPT/HCPCS: 40010; 50002; 60001; 80212; 81238; 83307; 83377; 83411; 83426; 83526; 84038; 85372; 90074; 91162; 91163